=== PATIENT | female | born 1995 | race African-American/Black ===

== ENCOUNTER 2025-05-05 22:56 | Emergency (ER) | payer MEDICAID ==
[~2025-05-05] VITALS: Ht 167.6 cm; Wt 90.0 kg
[2025-05-05] MEDS: LORAZEPAM 2MG/ML UD SYRINGE IM NR (23:30)
[2025-05-06] MEDS: DIPHENHYDRAMINE 50MG/ML VIAL IM ONE (00:40)
[2025-05-06] MEDS: HALOPERIDOL LACTATE 5MG/ML VIAL IM ONE (00:41)
[2025-05-06 00:42] LABS: BASOPHILS % 1.0 % (0.0-2.0); EOSINOPHILS % 1.8 % (0.0-5.0); HEMATOCRIT. 44.5 % (36.0-48.0); HEMOGLOBIN. 14.4 g/dL (12.0-16.0); LYMPHOCYTES % 33.5 % (20.0-50.0); MEAN PLATELET VOLUME 7.5 fl (7.4-10.4); MONOCYTES % 5.1 % (2.0-8.0); NEUTROPHILS % 58.6 % (40.0-76.0); PLATELET 280 x1000/uL (130-400); RED BLOOD CELL COUNT 4.69 mill/uL (4.2-5.4); RED CELL DISTRIBUTION WIDTH 14.4 % (11.6-14.6)
[2025-05-06 00:55] LABS: CREATININE 1.2 mg/dL (0.6-1.0); UREA NITROGEN BLOOD 18 mg/dL (9-23)
[2025-05-06 00:56] LABS: ETHANOL BLOOD 199 mg/dL (<10)
[2025-05-06 00:57] LABS: ASPARTATE AMINOTRANSFERASE 25 IU/L (<34); BILIRUBIN DIRECT < 0.1 mg/dL (<=3.0); BILIRUBIN TOTAL 0.2 mg/dL (0.1-1.0); PROTEIN TOTAL 7.5 g/dL (6.0-8.3)
[2025-05-06 00:59] LABS: HCG SCREEN NEGATIVE
[2025-05-06 01:42] LABS: TROPONIN I HIGH SENSITIVITY < 4 ng/L (3.0-34)
[2025-05-06 01:54] LABS: *AMPHETAMINES SCREEN URINE NEGATIVE (NEGATIVE); *BARBITURATES SCREEN URINE NEGATIVE (NEGATIVE); *BENZODIAZEPINES SCREEN URINE NEGATIVE (NEGATIVE); *COCAINE SCREEN URINE NEGATIVE (NEGATIVE)
[2025-05-06 01:55] LABS: CANNABINOID URINE SCREEN NEGATIVE (NEGATIVE); ECSTASY MDMA SCREEN URINE NEGATIVE (NEGATIVE); METHADONE URINE SCREEN NEGATIVE (NEGATIVE); OPIATES URINE SCREEN NEGATIVE (NEGATIVE); PHENCYCLIDINE URINE SCREEN NEGATIVE (NEGATIVE)
[2025-05-06 02:00] VITALS: O2SAT 96
[2025-05-06 02:44] LABS: CLARITY URINE CLEAR (CLEAR); COLOR URINE YELLOW (YELLOW); PH URINE 5.5 (4.5-8.0); SPECIFIC GRAVITY URINE 1.016 (1.005-1.030)
[2025-05-06 02:45] LABS: GLUCOSE URINE NEGATIVE (NEGATIVE); KETONES URINE TRACE (NEGATIVE); NITRITE URINE NEGATIVE (NEGATIVE); OCCULT BLOOD URINE 3+ (NEGATIVE); PROTEIN URINE 2+ (NEGATIVE); UROBILINOGEN URINE 0.2 E.U./dL (0.2-1.0)
[2025-05-06 02:46] LABS: LEUKOCYTE ESTERASE URINE 1+ (NEGATIVE)
[2025-05-06 04:48] LABS: SQUAMOUS EPITHELIAL CELL URINE FEW /lpf (RARE/1+)
[2025-05-06 04:52] LABS: BACTERIA URINE TRACE
[2025-05-06] MEDS: POTASSIUM CHLORIDE 20MEQ/PACKET PO NR (07:49)
[2025-05-07] MEDS: CEPHALEXIN 250MG CAPSULE PO ONE (10:15)
[2025-05-07] MEDS: LAMOTRIGINE 100MG TABLET PO SCH (11:40)
[2025-05-07] MEDS: POTASSIUM CHLORIDE 20MEQ/PACKET PO ONE (12:27)
[2025-05-07 17:27] VITALS: BP 121/81; PULSE 81; RESP 19; TEMP 36.3; O2SAT 99
[2025-05-07] MEDS: CLONIDINE 0.1MG TABLET PO ONE (18:12)
[2025-05-07 22:30] VITALS: BP 138/80; PULSE 79; RESP 16; TEMP 36.3; O2SAT 100
== END 2025-05-07 22:31 ==
LOC: EDBD 22:56 → ER 22:56
DX: R45.851 Suicidal ideations (principal); F10.129 Alcohol abuse with intoxication, unspecified; E87.6 Hypokalemia; I10 Essential (primary) hypertension; F31.9 Bipolar disorder, unspecified; Z20.822 Contact with and (suspected) exposure to COVID-19; Z98.890 Other specified postprocedural states; Z79.899 Other long term (current) drug therapy; Y90.6 Blood alcohol level of 120-199 mg/100 ml
CPT/HCPCS: 80076; 80305; 80048; 81003; 80307; 80329; 80320; 84703; 85025; 84484; 36415; 96372 ×2; 99291; 87426; J1200; J1630; J2060; G0480